=== PATIENT | male | born 2000 | race Caucasian/White ===

== ENCOUNTER 2018-10-16 17:53 | Emergency (ER) | payer OTHER ==
[~2018-10-16] VITALS: Ht 190.5 cm; Wt 96.3 kg
[2018-10-16 18:00] VITALS: BP 128/55
[2018-10-16] MEDS ORDERED: NACL 0.9% 1,000 ML IV ONE (18:40)
[2018-10-16] MEDS ORDERED: KETOROLAC 30 MG/ML VIAL IVP ONE (18:40)
--- NOTE | 2018-10-16 19:10 | NUR ---
ASSUMED CARE OF PT AT THIS TIME. C/O NECK PAIN AND FEVER. PT W/ RECENT DX MONO. PT STATES RIGHT LYMPH SWOLLEN/PAINFUL. AAOX4 WITH EVEN AND STEADY GAIT; PATIENT STATES PAIN OF 10/10; VSS; PATIENT POSITIONED FOR COMFORT; HOB ELEVATED; BEDRAILS UP X2; BED DOWN. ER MD MADE AWARE OF PT STATUS. WILL CONTINUE TO MONITOR.
[2018-10-16] MEDS ORDERED: ACETAMINOPHEN 650 MG/20.3 ML UDC PO ONE (19:20)
[2018-10-16 19:34] LABS: ALBUMIN 3.6 g/dL (3.4-5.0); ANION GAP 10.6 (8-16); CARBON DIOXIDE 24.8 mmol/L (21-32); CREATININE 1.2 mg/dL (0.7-1.3); POTASSIUM 3.4 mmol/L (3.5-5.1)
[2018-10-16 19:55] LABS: HEMATOCRIT 42.4 % (36-52); HEMOGLOBIN 13.9 g/dL (12.0-18.0); MEAN CORPUSCULAR HEMOGLOBIN 27 pg (27-31); MEAN CORPUSCULAR HGB CONC 33 g/dL (33-37); MEAN CORPUSCULAR VOLUME 83.2 fL (80-94); PLATELET COUNT (AUTO) 143 K/uL (140-450); RED CELL DISTRIBUTION WIDTH 13.5 % (11.6-13.7); WHITE BLOOD COUNT (AUTO) 12.9 K/uL (4.5-11.0)
[2018-10-16 21:08] LABS: MONOCYTES % (MANUAL) 10 % (5-12)
[2018-10-16 21:09] LABS: LYMPHOCYTES % (MANUAL) 48 % (20-46)
[2018-10-16 21:55] VITALS: BP 114/58
--- NOTE | 2018-10-16 21:55 | NUR ---
Patient discharged with v/s stable. Written and verbal after care instructions given and explained. Patient alert, oriented and verbalized understanding of instructions. Ambulatory with steady gait. All questions addressed prior to discharge. ID band removed. Patient advised to follow up with PMD. Rx of MOTRIN, PREDNISONE, AND NORCO given. Patient educated on indication of medication including possible reaction and side effects. Opportunity to ask questions provided and answered.
== END 2018-10-16 21:55 | disposition home or self-care (01) ==
LOC: MED 17:53
DX: I88.9 Nonspecific lymphadenitis, unspecified (principal); B27.90 Infectious mononucleosis, unspecified without complication
CPT/HCPCS: 36415; 70490; 80053; 82150; 85025; 87081; 96374; 99284; J1885; J7030